=== PATIENT | male | born 1995 | race Caucasian/White ===

== ENCOUNTER 2018-10-19 21:27 | Emergency (ER) | payer OTHER ==
[2018-10-19] MEDS ORDERED: Ibuprofen TAB* 600 MG PO ONE (21:48)
[2018-10-19 21:53] VITALS: BP 145/92
--- NOTE | 2018-10-19 21:54 | UC ---
Ear Complaint HPI - HPI Summary HPI Summary: 22-year-old male comes in with a chief complaint of right ear pain. Patient had some ear wax and he was cleaning is ears clear using a Q-tip and had sudden onset of pain in the right ear. Right after that he had greatly decreased hearing. The pain in the ear is mild and tolerable. Patient feels like there is water behind the eardrum. Patient felt well prior to cleaning is ears out did not have any upper respiratory tract infection symptoms no fevers. No known prior eardrum injury. - History of Current Complaint Stated Complaint: RIGHT EAR PAIN Time Seen by Provider: 10/19/18 21:36 PMH/Surg Hx/FS Hx/Imm Hx Previously Healthy: Yes - Family History Known Family History: Positive: Non-Contributory Review of Systems All Other Systems Reviewed And Are Negative: Yes Constitutional: Positive: Negative Skin: Positive: Negative Eyes: Positive: Negative ENT: Positive: Ear Ache Respiratory: Positive: Negative Cardiovascular: Positive: Negative Gastrointestinal: Positive: Negative Motor: Positive: Negative Neurovascular: Positive: Negative Musculoskeletal: Positive: Negative Neurological: Positive: Negative Psychological: Positive: Negative Is Patient Immunocompromised?: No Physical Exam Triage Information Reviewed: Yes Appearance: Well-Appearing, No Pain Distress, Well-Nourished Vital Signs Reviewed: Yes Eye Exam: Normal Eyes: Positive: Conjunctiva Clear ENT: Positive: TM bulging - The right TM is erythematous and bulging with clear fluid behind the eardrum. I do not see any tympanic perforation. The ear canal is clean and free of cerumen. Neck: Positive: Supple Respiratory: Positive: No respiratory distress Musculoskeletal: Positive: Strength Intact, ROM Intact Neurological: Positive: Alert Psychological: Positive: Age Appropriate Behavior Skin Exam: Normal Ear Complaint Course/Dx - Course Course Of Treatment: On examination I do not see a perforation of the tympanic membrane on the right however the tympanic membrane is erythematous and is clear fluid behind it. Patient had no upper respiratory tract infection symptoms prior to the onset of the pain. The findings fell due to injury of the eardrum by cleaning of the ear. Plastic ibuprofen and follow-up with ENT. - Differential Dx/Diagnosis Provider Diagnosis: Injury of tympanic membrane of right ear, Right serous otitis media Discharge - Sign-Out/Discharge Documenting (check all that apply): Patient Departure All imaging exams completed and their final reports reviewed: No Studies - Discharge Plan Condition: Stable Disposition: HOME Patient Education Materials: Earache (ED), Serous Otitis Media (ED) Referrals: Rey Spence MD [Medical Doctor] - Additional Instructions: FOLLOW UP WITH ENT, DR SPENCE. Take ibuprofen 600 mg every 6 hours as needed. Follow-up with the ear nose and throat doctor Dr. Spence. GET RECHECKED SOONER IF YOUR CONDITION WORSENS OR ANY QUESTIONS OR CONCERNS. - Billing Disposition and Condition Condition: STABLE Disposition: Home
== END 2018-10-19 21:58 | disposition home or self-care (01) ==
LOC: UCCORT 21:27
DX: H73.899 Other specified disorders of tympanic membrane, unspecified ear (principal); H65.91 Unspecified nonsuppurative otitis media, right ear
CPT/HCPCS: 99202; A9270-GY; G0463